=== PATIENT | male | born 1985 | race Caucasian/White ===

== ENCOUNTER 2016-09-23 19:50 | Emergency (ER) | payer MEDICAID ==
[~2016-09-23 19:50] MED LIST: AMOXICILLIN500 M1 PO; BENADRYL25 M1 PO; DAYQUIL; ERYTHROMYC3.5 GM OPT OD; FLEXERIL PO; FLEXERIL10 MG PO; IBUPROFEN PO; IBUPROFEN600 MG; KEFLEX PO; NAPROSYN500 MG PO; NO MEDICATIONS; PEN-VEE K PO; PREDNISONE PO; ULTRAM PO; VIBRAMYCIN100 M1 PO; VISTARIL PO; VOLTAREN50 MG; VOLTAREN50 MG PO; VOLTAREN75 MG PO
== END 2016-09-23 19:55 | disposition home or self-care (01) ==
LOC: SED 19:50
DX: R05 Cough (principal); F17.210 Nicotine dependence, cigarettes, uncomplicated
CPT/HCPCS: 99282